=== PATIENT | male | born 1980 | race Two or more races ===

== ENCOUNTER 2020-05-18 12:07 | Inpatient (IN) | payer MEDICAID, OTHER ==
[~2020-05-18] VITALS: Ht 160 cm; Wt 76.1 kg
[2020-05-18 12:57] LABS: Basophils # (auto) 0 10 ^3/uL (0-0.2); Basophils % (auto) 0.4 % (0.0-2.0); Eosinophils # (auto) 0 10 ^3/uL (0-0.8); Eosinophils % (auto) 0.9 % (0.0-7.0); Hematocrit 42.7 % (41.0-53.0); Hemoglobin 14.7 g/dL (13.5-17.5); Lymphocytes # (auto) 0.9 10 ^3/uL (0.4-5.4); Lymphocytes % (auto) 21.4 % (10.0-50.0); Mean Corpuscular Hemoglobin 31.7 pg (28.0-32.0); Mean Corpuscular Hgb Conc. 34.5 g/dL (32.0-36.0); Monocytes # (auto) 0.4 10 ^3/uL (0-1.3); Monocytes % (auto) 9.8 % (0.0-12.0); Neutrophils % (auto) 67.5 % (37.0-80.0); Nucleated Red Blood Cells % 0.1 %; Platelet Count (auto) 410 10^3/uL (140-450); Red Blood Cells 4.64 10^6/uL (4.5-5.90); Red Cell Distribution Width 12.4 % (11.8-14.3); White Blood Cell 4.4 10^3/uL (4.4-10.8)
[2020-05-18 13:09] LABS: Albumin 2.9 g/dL (3.4-5.0); Calcium 8.5 mg/dL (8.5-10.1); Magnesium 2.2 mg/dL (1.6-2.6); Potassium 3.7 mmol/L (3.5-5.1)
[2020-05-18 13:13] LABS: BUN/Creatinine Ratio 13.2; Bilirubin, Total 0.5 mg/dL (0.2-1.0); Total Protein 7.7 g/dL (6.4-8.2)
[2020-05-18] MEDS ORDERED: levoFLOXacin 750MG 150 ML IV ONE (13:15)
[2020-05-18] MEDS ORDERED: cefTRIAXone 1GM/50ML D5W 50 ML IV ONE (13:15)
[2020-05-18] MEDS ORDERED: ONDANSETRON HCL 4 MG/2 ML VIAL IV PRN (14:15)
[2020-05-18] MEDS ORDERED: ALUM & MAG HYDROX-SIMETH LIQ(MAALOX) 30 ML PO PRN (14:15)
[2020-05-18] MEDS ORDERED: HYDROcodone-ACET 5/325MG TAB PO PRN (14:15)
[2020-05-18] MEDS ORDERED: ACETAMINOPHEN 500 MG TAB PO PRN (14:15)
[2020-05-18] MEDS ORDERED: MORPHINE SULF INJ 2 MG/ML SYRINGE 1ML IV PRN ×2 (14:15)
[2020-05-18] MEDS ORDERED: REMDESIVIR PER PHARMACY 0 ML IV SCH (14:15)
[2020-05-18] MEDS ORDERED: DOCUSATE SOD 100 MG CAP PO PRN (14:15)
[2020-05-18] MEDS ORDERED: NITROGLYCERIN 0.4 MG SL TAB SL PRN (14:15)
[2020-05-18] MEDS ORDERED: IBUP400T23 PO (14:24)
[2020-05-18] MEDS ORDERED: ACET1CAP14 PO (14:24)
[2020-05-18] MEDS: SODIUM CHLORIDE 0.9% 2,250 ML IV ONE ×2 (14:35→18:15)
[2020-05-18] MEDS ORDERED: FUROSEMIDE 20 MG/2 ML VIAL IV ONE (14:45)
[2020-05-18] MEDS: SODIUM CHLORIDE 0.9% 1,000 ML IV SCH (15:49)
[2020-05-18] MEDS ORDERED: FUROSEMIDE 20 MG/2 ML VIAL IV SCH (18:00)
[2020-05-18] MEDS: BUDESONIDE (INHALATION) 180 MCG IH IN SCH (18:41)
[2020-05-18 19:33] LABS: Basophils # (auto) 0 10 ^3/uL (0-0.2); Basophils % (auto) 0.2 % (0.0-2.0); Eosinophils # (auto) 0.1 10 ^3/uL (0-0.8); Eosinophils % (auto) 1.9 % (0.0-7.0); Hematocrit 41.7 % (41.0-53.0); Hemoglobin 14.8 g/dL (13.5-17.5); Mean Corpuscular Hemoglobin 32.8 pg (28.0-32.0); Mean Corpuscular Hgb Conc. 35.6 g/dL (32.0-36.0); Mean Corpuscular Volume 92.2 fL (80.0-100.0); Monocytes # (auto) 0.4 10 ^3/uL (0-1.3); Monocytes % (auto) 9.7 % (0.0-12.0); Neutrophils # (auto) 2.8 10 ^3/uL (1.6-8.6); Neutrophils % (auto) 65.2 % (37.0-80.0); Platelet Count (auto) 373 10^3/uL (140-450); Red Blood Cells 4.53 10^6/uL (4.5-5.90); Red Cell Distribution Width 12.4 % (11.8-14.3); White Blood Cell 4.4 10^3/uL (4.4-10.8)
[2020-05-18 19:42] LABS: Albumin 2.8 g/dL (3.4-5.0); Calcium 8.5 mg/dL (8.5-10.1); Potassium 3.5 mmol/L (3.5-5.1)
[2020-05-18 19:51] LABS: Cholesterol 137 mg/dL (< 200); HDL Cholesterol 27 mg/dL (40-59); LDL Cholesterol 91 mg/dL (< 100); Triglycerides 134 mg/dL (< 150)
[2020-05-18 19:52] LABS: BUN/Creatinine Ratio 11.5; Bilirubin, Total 0.4 mg/dL (0.2-1.0); CRP High Sensitivity 4.69 mg/dL (< 0.3); Total Protein 7.5 g/dL (6.4-8.2)
[2020-05-18] MEDS: ATORVASTATIN 20 MG TAB PO SCH (22:36)
[2020-05-18] MEDS: DOXYCYCLINE 100MG/250ML 250 ML IV SCH (22:36)
[2020-05-18] MEDS: ENOXAPARIN SOD 40 MG/0.4 ML SYRINGE SC SCH (22:37)
[2020-05-18] MEDS: LORazepam 0.5 MG TAB PO PRN (23:01)
[2020-05-19 05:25] LABS: Basophils # (auto) 0 10 ^3/uL (0-0.2); Basophils % (auto) 0.2 % (0.0-2.0); Eosinophils # (auto) 0.1 10 ^3/uL (0-0.8); Eosinophils % (auto) 2.1 % (0.0-7.0); Hematocrit 40.2 % (41.0-53.0); Hemoglobin 14.3 g/dL (13.5-17.5); Lymphocytes # (auto) 1.1 10 ^3/uL (0.4-5.4); Lymphocytes % (auto) 21.1 % (10.0-50.0); Mean Corpuscular Hemoglobin 32.9 pg (28.0-32.0); Mean Corpuscular Hgb Conc. 35.5 g/dL (32.0-36.0); Mean Corpuscular Volume 92.7 fL (80.0-100.0); Monocytes # (auto) 0.5 10 ^3/uL (0-1.3); Monocytes % (auto) 10.3 % (0.0-12.0); Neutrophils # (auto) 3.3 10 ^3/uL (1.6-8.6); Neutrophils % (auto) 66.3 % (37.0-80.0); Nucleated Red Blood Cells % 0.1 %; Platelet Count (auto) 370 10^3/uL (140-450); Red Blood Cells 4.34 10^6/uL (4.5-5.90); Red Cell Distribution Width 12.4 % (11.8-14.3)
[2020-05-19 05:40] LABS: INR 1.03 (0.9-1.15); Partial Thromboplastin Time 28.4 sec (23.0-31.2)
[2020-05-19 05:42] LABS: Potassium 4.3 mmol/L (3.5-5.1)
[2020-05-19 05:49] LABS: Albumin 2.6 g/dL (3.4-5.0); BUN/Creatinine Ratio 13.4; Bilirubin, Total 0.6 mg/dL (0.2-1.0); Calcium 8.7 mg/dL (8.5-10.1); Magnesium 2.2 mg/dL (1.6-2.6); Phosphorus 3.2 mg/dL (2.5-4.90); Total Protein 7.2 g/dL (6.4-8.2)
[2020-05-19] MEDS: FUROSEMIDE 40 MG/4 ML VIAL IV SCH ×2 (06:00→18:00)
[2020-05-19] MEDS: CHOLECALCIFEROL (VITD3) 2,000 UNIT CAP/TAB PO SCH (09:42)
[2020-05-19] MEDS: ASPirin 81 mg TAB PO SCH (09:42)
[2020-05-19] MEDS: DexAMETHasone SOD PHOS 10MG/1ML VIAL INJ IV SCH (09:42)
[2020-05-19] MEDS: ASCORBIC ACID 1,000 MG TAB PO SCH (09:42)
[2020-05-19] MEDS: ZINC SULFATE 220mg CAP or TAB PO SCH (09:42)
[2020-05-19] MEDS: POTASSIUM CHL 10 Meq TABLET PO SCH (09:42)
[2020-05-19] MEDS: ENOXAPARIN SOD 40 MG/0.4 ML SYRINGE SC SCH ×2 (09:43→21:43)
[2020-05-19] MEDS: BUDESONIDE (INHALATION) 180 MCG IH IN SCH ×2 (09:43→20:40)
[2020-05-19] MEDS: SODIUM CHLORIDE 0.9% 1,000 ML IV SCH (10:22)
[2020-05-19] MEDS: DOXYCYCLINE 100MG/250ML 250 ML IV SCH ×2 (10:22→21:42)
[2020-05-19] MEDS ORDERED: REMDESIVIR 200 MG in NS 210ml LOADING DOSE ADULT IV ONE (18:00)
[2020-05-19 19:30] VITALS: BP 142/83
[2020-05-19 19:33] VITALS: BP 134/82
[2020-05-19] MEDS: ALBUTEROL SULF HFA 90MCG INH 200DOSE IN PRN (20:40)
[2020-05-19] MEDS: ATORVASTATIN 20 MG TAB PO SCH (21:43)
[2020-05-19 21:50] VITALS: BP 133/96
[2020-05-20] VITALS: BP 126/80
[2020-05-20 05:30] VITALS: BP 136/73
[2020-05-20] MEDS: FUROSEMIDE 40 MG/4 ML VIAL IV SCH ×2 (05:47→18:11)
[2020-05-20] MEDS: SODIUM CHLORIDE 0.9% 1,000 ML IV SCH (06:15)
[2020-05-20] MEDS: ALBUTEROL SULF HFA 90MCG INH 200DOSE IN PRN ×2 (06:18→20:44)
[2020-05-20] MEDS: BUDESONIDE (INHALATION) 180 MCG IH IN SCH ×2 (06:18→20:44)
[2020-05-20 08:00] VITALS: BP 128/70
[2020-05-20] MEDS: DOXYCYCLINE 100MG/250ML 250 ML IV SCH ×2 (10:19→21:38)
[2020-05-20] MEDS: DexAMETHasone SOD PHOS 10MG/1ML VIAL INJ IV SCH (10:19)
[2020-05-20] MEDS: ZINC SULFATE 220mg CAP or TAB PO SCH (10:19)
[2020-05-20] MEDS: ASPirin 81 mg TAB PO SCH (10:19)
[2020-05-20] MEDS: ASCORBIC ACID 1,000 MG TAB PO SCH (10:20)
[2020-05-20] MEDS: POTASSIUM CHL 10 Meq TABLET PO SCH (10:20)
[2020-05-20] MEDS: CHOLECALCIFEROL (VITD3) 2,000 UNIT CAP/TAB PO SCH (10:21)
[2020-05-20] MEDS: ENOXAPARIN SOD 40 MG/0.4 ML SYRINGE SC SCH ×2 (10:21→21:38)
[2020-05-20 11:31] LABS: Calcium 8.7 mg/dL (8.5-10.1); Potassium 3.2 mmol/L (3.5-5.1)
[2020-05-20 11:37] LABS: Albumin 2.9 g/dL (3.4-5.0); BUN/Creatinine Ratio 17.9; Bilirubin, Total 0.5 mg/dL (0.2-1.0); Total Protein 7.4 g/dL (6.4-8.2)
[2020-05-20] MEDS ORDERED: guaiFENesin-DM 100/10mg/5ml SYR PO PRN (15:00)
[2020-05-20] MEDS: REMDESIVIR 100mg 100 MG in SODIUM CHL 0.9% 230 ML IV SCH (15:23)
[2020-05-20 15:51] VITALS: BP 135/79
[2020-05-20 16:01] VITALS: BP 135/79
[2020-05-20] MEDS ORDERED: POTASSIUM CHL 20 Meq TABLET PO ONE (20:15)
[2020-05-20] MEDS ORDERED: POTASSIUM CHL 20MEQ/100ML 100 ML IV ONE (20:15)
[2020-05-20] MEDS ORDERED: ASPI81CH43 PO (20:21)
[2020-05-20] MEDS ORDERED: ZINC100T5 PO (20:21)
[2020-05-20] MEDS ORDERED: ALBUAER3 IN (20:21)
[2020-05-20] MEDS ORDERED: DEX4T PO (20:21)
[2020-05-20] MEDS ORDERED: DEXT1SYP9 PO (20:21)
[2020-05-20] MEDS ORDERED: POTA10TA51 PO (20:21)
[2020-05-20] MEDS ORDERED: FAMO-12 PO (20:21)
[2020-05-20] MEDS ORDERED: DOCU100C10 PO (20:21)
[2020-05-20] MEDS ORDERED: CHOL1CAP47 PO (20:21)
[2020-05-20] MEDS ORDERED: ASCO10003 PO (20:21)
[2020-05-20] MEDS ORDERED: FURO1TAB33 PO (20:21)
[2020-05-20] MEDS ORDERED: ATOR20TA50 PO (20:21)
[2020-05-20] MEDS ORDERED: AZIT500T66 PO (20:21)
[2020-05-20] MEDS: ATORVASTATIN 20 MG TAB PO SCH (21:38)
[2020-05-20] MEDS: LORazepam 0.5 MG TAB PO PRN (21:57)
[2020-05-21] VITALS: BP 117/73
[2020-05-21] MEDS: SODIUM CHLORIDE 0.9% 1,000 ML IV SCH (02:15)
[2020-05-21] MEDS: FUROSEMIDE 40 MG/4 ML VIAL IV SCH (05:44)
[2020-05-21] MEDS: BUDESONIDE (INHALATION) 180 MCG IH IN SCH ×2 (06:10→19:46)
[2020-05-21] MEDS: ALBUTEROL SULF HFA 90MCG INH 200DOSE IN PRN ×2 (06:11→19:46)
[2020-05-21 07:43] LABS: Albumin 2.8 g/dL (3.4-5.0); Calcium 8.7 mg/dL (8.5-10.1); Potassium 4.2 mmol/L (3.5-5.1)
[2020-05-21 07:46] LABS: BUN/Creatinine Ratio 19.5; Bilirubin, Total 0.4 mg/dL (0.2-1.0); Total Protein 7.3 g/dL (6.4-8.2)
[2020-05-21 08:00] VITALS: BP 96/51
[2020-05-21] MEDS: ASPirin 81 mg TAB PO SCH (09:44)
[2020-05-21] MEDS: ASCORBIC ACID 1,000 MG TAB PO SCH (09:44)
[2020-05-21] MEDS: POTASSIUM CHL 10 Meq TABLET PO SCH (09:45)
[2020-05-21] MEDS: ZINC SULFATE 220mg CAP or TAB PO SCH (09:45)
[2020-05-21] MEDS: ENOXAPARIN SOD 40 MG/0.4 ML SYRINGE SC SCH ×2 (09:58→22:30)
[2020-05-21] MEDS: DOXYCYCLINE 100MG/250ML 250 ML IV SCH ×2 (09:58→22:30)
[2020-05-21] MEDS: CHOLECALCIFEROL (VITD3) 2,000 UNIT CAP/TAB PO SCH (09:58)
[2020-05-21] MEDS: DexAMETHasone SOD PHOS 10MG/1ML VIAL INJ IV SCH (09:59)
[2020-05-21] MEDS ORDERED: diphenhdrAMINE HCL 50 MG/1 ML VL IV PRN (11:30)
[2020-05-21] MEDS ORDERED: guaiFENesin-DM 100/10mg/5ml SYR PO PRN (11:30)
[2020-05-21] MEDS ORDERED: REMDESIVIR PER PHARMACY 0 ML IV SCH (11:30)
[2020-05-21] MEDS: REMDESIVIR 100mg 100 MG in SODIUM CHL 0.9% 230 ML IV SCH (15:55)
[2020-05-21 16:00] VITALS: BP 104/64
[2020-05-21] MEDS: ATORVASTATIN 20 MG TAB PO SCH (22:30)
[2020-05-21 23:56] VITALS: BP 110/60
[2020-05-22 07:52] LABS: Basophils # (auto) 0 10 ^3/uL (0-0.2); Basophils % (auto) 0.3 % (0.0-2.0); Eosinophils # (auto) 0 10 ^3/uL (0-0.8); Eosinophils % (auto) 0.3 % (0.0-7.0); Monocytes # (auto) 0.6 10 ^3/uL (0-1.3); Nucleated Red Blood Cells % 0.1 %; White Blood Cell 6.3 10^3/uL (4.4-10.8)
[2020-05-22 07:54] LABS: Hematocrit 43.4 % (41.0-53.0); Hemoglobin 14.8 g/dL (13.5-17.5); Lymphocytes # (auto) 1.6 10 ^3/uL (0.4-5.4); Lymphocytes % (auto) 25.3 % (10.0-50.0); Mean Corpuscular Hemoglobin 31.9 pg (28.0-32.0); Mean Corpuscular Hgb Conc. 34.2 g/dL (32.0-36.0); Mean Corpuscular Volume 93.4 fL (80.0-100.0); Monocytes % (auto) 9.6 % (0.0-12.0); Neutrophils # (auto) 4.1 10 ^3/uL (1.6-8.6); Neutrophils % (auto) 64.5 % (37.0-80.0); Red Blood Cells 4.64 10^6/uL (4.5-5.90); Red Cell Distribution Width 12.4 % (11.8-14.3)
[2020-05-22 08:00] VITALS: BP 114/65
[2020-05-22 08:11] LABS: Albumin 2.8 g/dL (3.4-5.0); Calcium 8.6 mg/dL (8.5-10.1); Potassium 4.2 mmol/L (3.5-5.1)
[2020-05-22 08:15] LABS: BUN/Creatinine Ratio 19.4; Bilirubin, Total 0.6 mg/dL (0.2-1.0); Total Protein 7.3 g/dL (6.4-8.2)
[2020-05-22] MEDS: BUDESONIDE (INHALATION) 180 MCG IH IN SCH ×2 (10:00→20:25)
[2020-05-22 10:04] LABS: Platelet Count (auto) 484 10^3/uL (140-450)
[2020-05-22] MEDS: DOXYCYCLINE 100MG/250ML 250 ML IV SCH ×2 (10:19→22:12)
[2020-05-22] MEDS: CHOLECALCIFEROL (VITD3) 2,000 UNIT CAP/TAB PO SCH (10:20)
[2020-05-22] MEDS: FUROSEMIDE 40 MG/4 ML VIAL IV SCH (10:20)
[2020-05-22] MEDS: ASCORBIC ACID 1,000 MG TAB PO SCH (10:20)
[2020-05-22] MEDS: POTASSIUM CHL 10 Meq TABLET PO SCH (10:20)
[2020-05-22] MEDS: ZINC SULFATE 220mg CAP or TAB PO SCH (10:21)
[2020-05-22] MEDS: DexAMETHasone SOD PHOS 10MG/1ML VIAL INJ IV SCH (10:21)
[2020-05-22] MEDS: ENOXAPARIN SOD 40 MG/0.4 ML SYRINGE SC SCH ×2 (10:21→22:12)
[2020-05-22] MEDS: ALBUTEROL SULF HFA 90MCG INH 200DOSE IN PRN ×2 (12:35→20:25)
[2020-05-22] MEDS: REMDESIVIR 100mg 100 MG in SODIUM CHL 0.9% 230 ML IV SCH (15:20)
[2020-05-22 16:00] VITALS: BP 107/49
[2020-05-22] MEDS: ATORVASTATIN 20 MG TAB PO SCH (22:12)
[2020-05-22 23:57] VITALS: BP 110/67
[2020-05-23] MEDS: ALBUTEROL SULF HFA 90MCG INH 200DOSE IN PRN (06:21)
[2020-05-23] MEDS: BUDESONIDE (INHALATION) 180 MCG IH IN SCH (06:21)
[2020-05-23 07:02] LABS: Potassium 3.9 mmol/L (3.5-5.1)
[2020-05-23 07:16] LABS: Albumin 2.9 g/dL (3.4-5.0); BUN/Creatinine Ratio 22.1; Bilirubin, Total 0.5 mg/dL (0.2-1.0); Calcium 8.6 mg/dL (8.5-10.1); Total Protein 7.3 g/dL (6.4-8.2)
[2020-05-23 08:00] VITALS: BP 99/51
[2020-05-23] MEDS: POTASSIUM CHL 10 Meq TABLET PO SCH (10:26)
[2020-05-23] MEDS: DOXYCYCLINE 100MG/250ML 250 ML IV SCH (10:26)
[2020-05-23] MEDS: ZINC SULFATE 220mg CAP or TAB PO SCH (10:26)
[2020-05-23] MEDS: FUROSEMIDE 40 MG/4 ML VIAL IV SCH (10:27)
[2020-05-23] MEDS: ASCORBIC ACID 1,000 MG TAB PO SCH (10:27)
[2020-05-23] MEDS: DexAMETHasone SOD PHOS 10MG/1ML VIAL INJ IV SCH (10:27)
[2020-05-23] MEDS: CHOLECALCIFEROL (VITD3) 2,000 UNIT CAP/TAB PO SCH (10:27)
[2020-05-23] MEDS: ENOXAPARIN SOD 40 MG/0.4 ML SYRINGE SC SCH (10:27)
[2020-05-23] MEDS: REMDESIVIR 100mg 100 MG in SODIUM CHL 0.9% 230 ML IV SCH (15:41)
[2020-05-23 16:00] VITALS: BP 117/79
[2020-05-23 16:35] VITALS: BP 117/79
== END 2020-05-23 19:20 | disposition home or self-care (01) | DRG 137 ==
LOC: ER 12:07 → TELE 12:08 → TELE-WESTW 05-19 18:02
PROVIDERS: ADMIT Hospitalist; ATTEND Internal Medicine
PROC: XW033E5 Introduction of Remdesivir Anti-infective into Peripheral Vein, Percutaneous Approach, New Technology Group 5 (ICD-10-PCS; principal; 2020-05-20)
DX: U07.1 COVID-19 (principal); J96.01 Acute respiratory failure with hypoxia; J12.82 Pneumonia due to coronavirus disease 2019; E44.0 Moderate protein-calorie malnutrition; R65.10 Systemic inflammatory response syndrome (SIRS) of non-infectious origin without acute organ dysfunction; E88.09 Other disorders of plasma-protein metabolism, not elsewhere classified; E66.9 Obesity, unspecified; E87.6 Hypokalemia; E78.5 Hyperlipidemia, unspecified; Z68.29 Body mass index [BMI] 29.0-29.9, adult
CPT/HCPCS: 36415; 71045; 80053; 80061; 82306; 82728; 83036; 83605; 83615; 83735; 84100; 84443; 84484; 85025; 85379; 85610; 85730; 86141; 86850; 86900; 86901; 87040; 87426; 87804; 93005; 94640; 96365; 96367; G0378; J0696; J1100; J1956; J3480; J3490